=== PATIENT | male | born 1965 | race Caucasian/White ===

== ENCOUNTER 2020-01-08 09:07 | Day surgery (SDC) | payer OTHER ==
[2020-01-06 10:23] VITALS: BMI 23.7
--- OUTSIDE RECORDS SUMMARY | 2020-01-08 09:23 | XMS ---
:1965 Author Organization [facility] Support Name Relationship Address Phone CAMI SARAY JANSEN Unavailable [address] [place] [address] KARINA SANTIAGO SPOUSE [address] [phone] [place] [address] JP SARAY JANSEN Unavailable [phone] [place] [address] KANCHAN SANTIAGO SPOUSE [address] [place] [address] Re-disclosure Warning The records that you are about to access may contain information from federally- assisted alcohol or drug abuse programs. If such information is present, then the following federally mandated warning applies: This information has been disclosed to you from records protected by federal confidentiality rules (42 CFR part 2). The federal rules prohibit you from making any further disclosure of this information unless further disclosure is expressly permitted by the written consent of the person to whom it pertains or as otherwise permitted by 42 CFR part 2. A general authorization for the release of medical or other information is NOT sufficient for this purpose. The Federal rules restrict any use of the information to criminally investigate or prosecute any alcohol or drug abuse patient.The records that you are about to access may contain highly sensitive health information, the redisclosure of which is protected by Article 27-F of the [facility] Public Health law. If you continue you may haveaccess to information: Regarding HIV / AIDS; Provided by facilities licensed or operated by the [facility] Office of Mental Health; or Provided by the [facility] Office for People With Developmental Disabilities. If such information is present, then the following [facility] mandated warning applies: This information has been disclosed to you from confidential records which are protected by state law. State law prohibits you from making any further disclosure of this information without the specific written consent of the person to whom it pertains, or as otherwise permitted by law. Any unauthorized further disclosure in violation of state law may result in a fine or care home sentence or both. A general authorization for the release of medical or other information is NOT sufficient authorization for further disclosure. Insurance Providers Payer name Policy type Policy ID Covered Covered alliance party's Policy P nelly / Coverage alliance party ID relationship to Giraldo Inf ormation type giraldo [employer] [id number] SP [id number] HEALTHCARE PPO 2 Results ID Date Data Source [id number] 01/04/2020 09:41:00 AM EDT [facility] Name Value Range Interpretation Description Data Sup porting Code Source(s) Document(s ) SARS [facility] coronavirus 2 RNA This lab was ordered by SALLY DUNLAP and reported by [facility]. Procedure
[2020-01-08] MEDS ORDERED: BUPIVACAINE HCL/PF 0.5% (5 MG/ML) 30 ML VIAL IJ ONE (10:01)
[2020-01-08] MEDS ORDERED: MIDAZOLAM HCL 2 MG/2 ML SINGLE DOSE VIAL ONE (10:01)
--- NOTE | 2020-01-08 11:10 | OP ---
Operative Note - Note: Operative Date: 01/08/20 Pre-Operative Diagnosis: Left ankle fracture Operation: Left ankle ORIF Post-Operative Diagnosis: Same as Pre-op Surgeon: Hayder Amaya Candy Depositing Machine Operator: Mariola Parsons Anesthesia: General Operative Report Dictated: Yes
[2020-01-08] MEDS ORDERED: ceFAZolin SODIUM 1 GM VIAL ONE ×2 (11:54→11:57)
[2020-01-08] MEDS ORDERED: TRANEXAMIC ACID 1000 MG/10 ML VIAL ONE (12:10)
[2020-01-08] MEDS ORDERED: PROPOFOL 20 ML ONE ×2 (12:17→12:55)
[2020-01-08] MEDS ORDERED: oxyCODONE HCL 5 MG TABLET PO PRN (13:34)
[2020-01-08] MEDS ORDERED: ONDANSETRON 4 MG/2 ML VIAL IVPUSH PRN (13:34)
[2020-01-08] MEDS ORDERED: ACETAMINOPHEN 325 MG TABLET (FP) PO PRN (13:34)
[2020-01-08] MEDS ORDERED: LACTATED RINGERS SOLUTION 1,000 ML IV SCH (13:45)
--- NOTE | 2020-01-08 13:53 | OP ---
DATE OF OPERATION: 01/08/2020 PREOPERATIVE DIAGNOSIS: Left ankle unstable fracture. POSTOPERATIVE DIAGNOSIS: Left ankle unstable fracture, plus syndesmotic injury. PROCEDURE: Left ankle open reduction and internal fixation of distal fibula and syndesmosis. SURGEON: Hayder Carter MD SENIOR VICE PRESIDENT AND CHIEF INFORMATION OFFICER: JONN Torres, whose skillful assistance was necessary for the safe and timely performance of this procedure. Ms. Parsons was able to provide limb positioning, retraction, assist in fracture reduction as well as the insertion of hardware. ANESTHESIA: Regional plus spinal. POSTOPERATIVE CONDITION: Stable. COMPLICATIONS: None. IMPLANTS: Arthrex distal fibular plate with 3.5-mm non-locking and locking as well as 2.7-mm locking screws. Also, 1x Arthrex TightRope. INDICATIONS: This is a pleasant gentleman who suffered a trip and fall. He was found to have an unstable ankle fracture. Treatment options were discussed including nonoperative versus operative management. Operative risks were reviewed in detail including bleeding, infection, neurovascular injury, need for further surgery, postoperative pain and stiffness, nonunion, malunion, hardware failure, or cutout. We discussed medical risks such as heart attack, stroke, DVT, PE, and . I addressed the use of perioperative antibiotic and DVT prophylaxis. I reviewed the postoperative rehabilitation protocol and activity limitations. I addressed all the patient's questions and concerns. He voiced understanding and elected to proceed. DESCRIPTION OF PROCEDURE: Patient was brought to the operating room where spinal anesthesia was administered. He had previously been given a block in the preoperative holding area. The left lower extremity was then prepped and draped in the usual sterile fashion. A preoperative dose of antibiotics was given, and the usual timeout procedure was performed. The incision was now planned out over the distal fibula. This was then carried down through skin to subcutaneous tissue. Blunt spreading was used to expose the fascia which was then split in line with the limb. This exposed the fracture site. Fracture site was distracted and debrided of any loose debris. It was irrigated. A fracture reduction forceps was then placed across the fracture, drawing it into anatomic reduction. This was verified visually and fluoroscopically. A 3.5-mm lag screw was then drilled anterior to posterior and then inserted, securing the fracture in place. The fracture reduction clamp was removed. A plate was then chosen. The plate was then fixed to the bone initially proximally using non-locking screws and then inserted distally using locking screws and one more additional locking screw proximally. After securing the plate, the entire construct was examined visually and fluoroscopically. Both fracture reduction and hardware placement were satisfactory. External rotation stress test was now performed, and there was seen to be some widening of the medial clear space. Decision was made to perform syndesmotic fixation. A K-wire for a TightRope was drilled across the fibula and then tibia. This was then overdrilled. A TightRope device was then passed and secured in place. After tightening this, no further instability was noted. At this point, the wound was irrigated. Deep tissue was approximated using 0 Vicryl. The subcutaneous tissue was approximated using 2-0 Vicryl. Skin was closed using running 3-0 nylon. Sterile dressings were placed. The patient was placed into a well-padded, short-leg cast which was then bivalved. He was transferred to recovery room in stable condition. HAYDER CARTER M.D. [id number]
[2020-01-08 14:31] VITALS: TEMP 98.1
[2020-01-08] MEDS ORDERED: oxyCODONE HCL 5 MG TABLET ONE (15:34)
[2020-01-08 18:33] VITALS: PULSE 82
[2020-01-08 19:03] VITALS: BP 134/89
== END 2020-01-08 19:05 | disposition home or self-care (01) ==
LOC: FASU 09:07
PROVIDERS: ATTEND Orthopaedic Surgery Sports Medicine
PROC: 0QSK04Z Reposition Left Fibula with Internal Fixation Device, Open Approach (ICD-10-PCS; principal; 2020-01-08 12:04)
DX: S82.62XA Displaced fracture of lateral malleolus of left fibula, initial encounter for closed fracture (principal); W01.0XXA Fall on same level from slipping, tripping and stumbling without subsequent striking against object, initial encounter; Y93.9 Activity, unspecified; Y92.9 Unspecified place or not applicable
CPT/HCPCS: 27792; C1713; 73610-TC-LT-FY; 94760

== ENCOUNTER 2021-08-10 12:09 | Day surgery (SDC) | payer OTHER ==
[2021-08-10] MEDS ORDERED: DEXAMETHASONE SOD PHOSPHATE 4 MG/1 ML VIAL ONE (12:16)
[2021-08-10] MEDS ORDERED: ONDANSETRON 4 MG/2 ML VIAL ONE (12:16)
[2021-08-10] MEDS ORDERED: MIDAZOLAM HCL 2 MG/2 ML SINGLE DOSE VIAL ONE ×2 (12:16)
[2021-08-10] MEDS ORDERED: LIDOCAINE HCL/PF 2% SDV 5ML VIAL ONE (12:16)
[2021-08-10] MEDS ORDERED: KETOROLAC TROMETHAMINE 30 MG/1 ML VIAL ONE (12:16)
[2021-08-10] MEDS ORDERED: PROPOFOL 20 ML ONE ×2 (12:16)
[2021-08-10] MEDS ORDERED: ceFAZolin SODIUM 1 GM VIAL ONE (12:16)
[2021-08-10] MEDS ORDERED: BUPIVACAINE HCL/PF 0.5% (5 MG/ML) 30 ML VIAL IJ ONE (12:29)
[2021-08-10] MEDS ORDERED: oxyCODONE HCL 5 MG TABLET PO PRN ×2 (12:34)
[2021-08-10] MEDS ORDERED: ACETAMINOPHEN 1000 MG/100 ML BAG IVPB PRN (12:34)
[2021-08-10] MEDS ORDERED: ONDANSETRON 4 MG/2 ML VIAL IVPUSH PRN (12:34)
[2021-08-10 12:37] VITALS: BMI 22.3
[2021-08-10] MEDS ORDERED: LACTATED RINGERS SOLUTION 1,000 ML IV SCH (12:45)
[2021-08-10 14:48] VITALS: TEMP 97.6
[2021-08-10 15:23] VITALS: BP 135/95; PULSE 74
== END 2021-08-10 15:30 | disposition home or self-care (01) ==
LOC: FASU 12:09
PROVIDERS: ATTEND Orthopaedic Surgery Hand Surgery
PROC: 0LN60ZZ Release Left Lower Arm and Wrist Tendon, Open Approach (ICD-10-PCS; 2021-08-10)
PROC: 0PSJ04Z Reposition Left Radius with Internal Fixation Device, Open Approach (ICD-10-PCS; principal; 2021-08-10 13:36)
DX: S52.572A Other intraarticular fracture of lower end of left radius, initial encounter for closed fracture (principal); X58.XXXA Exposure to other specified factors, initial encounter; Y93.9 Activity, unspecified; Y92.9 Unspecified place or not applicable
CPT/HCPCS: 25290; 25609; C1713; 73110-TC-LT-FY